=== PATIENT | female | born 1985 | race Caucasian/White ===

== ENCOUNTER → 2017-09-15 | Outpatient (CLI) | payer OTHER ==
[~2017-09-15] MED LIST: BCPILLS; GADAVIST IV PRN
--- NOTE | 2017-09-15 17:20 | DIAGNOSTIC IMAGING REPORT ---
BRAIN COMBO FOR MS HISTORY: 32 years-old Female DEMYELANTING DISORDER acute paresthesias of the right upper extremity and right leg with numbness and tingling. Patient also complains of acute migraine headaches. COMPARISON: None available TECHNIQUE: Multiplanar multisequence MRI of the brain was obtained both with and without the use of Gadavist utilizing 10 amount Gadavist. Multiple sclerosis protocol was used. FINDINGS: Hand Former localizer images demonstrate no gross abnormality. There is no restricted diffusion to suggest acute or subacute infarct. The midline fractures including the corpus callosum, brainstem, optic chiasm, pituitary and pineal glands appear unremarkable on the sagittal T1 series. Low-lying cerebellar tonsils extend 4 mm below the foramen magnum. There are no significant degenerative changes about the imaged cervical spine. Imaged cervical spinal cord is also unremarkable. No acute intracranial hemorrhage, midline shift, abnormal extra axial collections, hydrocephalus or intracranial mass. No focal T2/FLAIR parenchymal signal abnormalities within the brain parenchyma identified. The major flow voids appear patent. The orbits are symmetric and within normal limits. Minimal mucosal thickening about the ethmoid air cells. Mastoid air cells are clear. The scalp and soft tissues are unremarkable. There is no abnormal intra-axial or extra-axial enhancement identified. IMPRESSION: 1. No acute intracranial abnormality identified. No evidence of demyelinating disease or abnormal enhancement. 2. Mild paranasal sinus disease. 3. Low-lying cerebellar tonsils. The above report was generated using voice recognition software. It may contain grammatical, syntax or spelling errors. Electronically signed by: Juancarlos Correa M.D. 09/15/2017 5:19 PM Dictated Date/Time: 09/15/2017 5:05 PM
== END | disposition home or self-care (01) ==
LOC: C.MRI 15:18
PROVIDERS: ATTEND Family Medicine
DX: M25.511 Pain in right shoulder (principal)